=== PATIENT | female | born 1990 | race Caucasian/White ===

== ENCOUNTER 2024-08-14 13:00 | Outpatient (RCR) | payer BC, SELFPAY ==
--- NOTE | 2024-04-15 13:54 | HP.PTEVAL ---
Patient's Visit Information Visit Information Visit Information: IVETT LUZ is a 33 year old F referred to Physical Therapy by Dr. Angel Mccurdy MD with a diagnosis of PAIN IN LEFT KNEE ,OTHER INSTABLITY ,LEFT KNEE. Date of Evaluation: 04/15/24 Physical Therapist: Riaz Magaña, PT, Cert MDT, OCS Visit Plan Frequency: 2x /Week Duration: 4 Weeks Plan: WEAN FROM CRUTCHES GRADUAL DIANNA BASED ON PATIENT PAIN BRACE DONJOY PATIENT PLAN 2 ND OPINION PT INSERTIONS ROM ,STRENGTHENING QUADS/HAMS/HIP OPEN/CLOSED CHAIN ,MODALITIES FOR PAIN , GRADUAL WB AND WEAN FROM CRUTCHES Subjective Subjective: This 33 y/o female presents to physical therapy for patellofemoral instability. Patient has April 03 tripped over daughter felt knee pain. Patient had immediate pain and edema. Seen DR Mccurdy recommended PT and crutches with min WB and knee donjoy brac.. Patient had x-rays -. Patient had incident when 14 y/o old knee subluxed. Patient unable to straighten knee . Patient has pain with walking and unable to squat or kneeling. Denies paresthesia/tingling. Patient has no difficulty . Patient has difficulty with ADLS and cleaning. Patient is unable to do stairs.Pain located patella medial . Pain described as sharp pain dull ache. SOCIAL: 2 children VOCATION: Domestic Pain Left Knee: Pain Intensity (Out of 10): 4 Pain Intensity Range: 10 Objective Objective: POSTURE: knee valgus ,patella alka , lateral tilting GAIT: ambulates with crutches with TDWB with knee brace donjoy EDEMA: mild effusion PALPATION: medial patella NEURO: denies paresthesia/tingling , reflexes intact AROM: 10 -70 degrees supine knee flexion MMT: peak force -quads/hams 0 ,hip 0 Special Tests L Knee Aron - ACL: Negative L Knee Posterior Drawer - PCL: Negative L Knee Valgus - MCL: Negative L Knee Varus - LCL: Negative L Knee Patellar Apprehension - PFS: Positive L Knee Patellar Grind - PFS: Negative Balance/Special Test Scores Lower Extremity Functional Score: 18 Goals Goal 1:: Patient to be I with HEP for knee Goal Time Frame: 4-6 Weeks Goal 2:: Patient to ambulate with normal bipin Goal Time Frame: 4-6 Weeks Goal 3:: Patient to improve AROM supine knee flexion 0-125 degrees to improve stairs Goal Time Frame: 4-6 Weeks Goal 4:: Patient to demonstrate 50% improvement with less pain and improved function Goal Time Frame: 4-6 Weeks Goal 5:: Patient to improve LFES score by 5 points to improve QOL and function. Goal Time Frame: 4-6 Weeks Rehabilitation Potential Physical Therapy Diagnosis: This patient has left knee pain with possible instability patellofemoral with pain ,poor ROM ,weakness ,impairs gait and function thus benefit from skilled PT Rehabilitation Potential: Good Anticipated Interventions Patient/Client Instruction: Educate patient on: Condition and Plan of Care For the Purpose of:: To decrease pain, To increase ROM, To improve muscle performance and motor function, To improve ability to perform ADL's, To improve performance and independence with ADL's, To improve ability of physical actions for home/community/work/leisure, To improve health of tissue, To decrease soft tissue restriction, To increase flexibility/ROM, To improve balance, To reduce risk of recurrence, To prevent re-injury and To improve tolerance to ADL's Therapeutic Exercise to Include: Strength training, Endurance training, Balance training, Flexibilty training and Active ROM For the Purpose of:: To decrease pain, To increase ROM, To improve muscle performance and motor function, To improve ability to perform ADL's, To increase tolerance to activity/condition/position, To improve ability of physical actions for home/community/work/leisure, To improve gait and locomotor functions, To improve health of tissue, To decrease soft tissue restriction, To increase flexibility/ROM, To prevent re-injury and To improve tolerance to ADL's TENS: Yes IF ES: Yes Cryotherapy (ice pack, ice massage): Yes Ultrasound (thermal/non thermal): Yes For the Purpose of:: To decrease pain, To increase ROM, To improve nutrient delivery to tissue, To increase oxygenation perfusion, To improve muscle performance and motor function, To improve ability to perform ADL's, To increase tolerance to activity/condition/position, To improve ability of physical actions for home/community/work/leisure, To improve gait and locomotor functions, To decrease soft tissue restriction, To increase flexibility/ROM, To improve endurance, To improve balance, To prevent re-injury and To improve tolerance to ADL's Text: Thank you for the opportunity to evaluate your patient. For Medicare and Medicare HMO plans, please review the plan of care and approve it. It will need to be FAXED BACK to us at [phone] for Medicare purposes. For Medicare only, by signing this I certify the plan of care. Please let me know if there are questions or concerns regarding this plan of care. Physician Signature: Date:
--- NOTE | 2024-08-14 13:54 | HP.PTDCSUM ---
Discharge Summary D/C summary: It has been my pleasure to treat IVETT LUZ referred by Dr. Angel Mccurdy MD, with the diagnosis of PAIN IN LEFT KNEE ,OTHER INSTABLITY ,LEFT KNEE for a total of 35 visit(s). Discharge Date: 08/14/24 Please see the following information for a summary of their discharge status. Subjective Subjective: Problems with descending stairs Pain Left Knee: Pain Intensity (Out of 10): 0 Overall Improvement % Improvement: 95 Objective Objective/Function: EDEMA: absent PALPATION:absent NEURO: denies paresthesia/tingling , reflexes intact AROM: 0-150 supine knee flexion MMT: peak force -quads 65.5 ,hamstrings 58.,hip abd 48.7 .7,hip flexion 62.1 Goals Goal 1:: Patient to be I with HEP for knee Goal Progress: Goal Met Goal 2:: Patient to ambulate with normal bipin Goal Progress: Goal Met Goal 3:: Patient to improve AROM supine knee flexion 0-125 degrees to improve stairs Goal Progress: Goal Met Goal 4:: Patient to demonstrate 50% improvement with less pain and improved function Goal Progress: Goal Met Goal 5:: Patient to improve LFES score by 5 points to improve QOL and function. Goal Progress: Goal Met Plan Plan: D/C D/C Information d/c sentence: If there are questions or concerns regarding this patient's physical therapy, please feel free to call me at [phone]. Thank you for the referral of this patient. Sincerely, Riaz Magaña, PT, Cert MDT, OCS Balance/Gait/Functional tests Balance/Special Test Scores Lower Extremity Functional Score: 72 Improvement % Improvement: 95
== END 2024-08-14 19:00 | disposition home or self-care (01) ==
LOC: PT 13:00
PROVIDERS: Referring Provider Orthopaedic Surgery Sports Medicine; Visit Provider Orthopaedic Surgery Sports Medicine
DX: M25.562 Pain in left knee (principal); M25.362 Other instability, left knee
CPT/HCPCS: 97016; 97110; 97162; 97530